=== PATIENT | male | born 1980 | race Caucasian/White ===

== ENCOUNTER 2017-07-23 10:28 | Emergency (ER) | payer BC, SELFPAY ==
[2017-07-23] MEDS ORDERED: Lidocaine 1% w/Epinephrine 1:100K 20 ML VIAL ONE (11:25)
[2017-07-23] MEDS ORDERED: Adacel (T-DAP) 0.5 ML VIAL ONE (11:26)
[2017-07-23] MEDS ORDERED: Amoxicillin/Potassium Clav 875 MG TAB ONE (12:38)
[2017-07-23] MEDS ORDERED: Bacitracin Zinc 1 Packet ONE (12:38)
== END 2017-07-23 12:46 | disposition home or self-care (01) ==
LOC: ERS 10:28
DX: S61.411A Laceration without foreign body of right hand, initial encounter; W55.32XA Struck by other hoof stock, initial encounter
CPT/HCPCS: 12001; 90471; 90715; J2001